=== PATIENT | female | born 1985 | race African-American/Black ===

== ENCOUNTER 2017-04-17 16:45 | Emergency (ER) | payer OTHER ==
[~2017-04-17] VITALS: Ht 162.6 cm; Wt 86.4 kg
[2017-04-17 19:15] LABS: CONTROL LINE HCG INT CTR LINE PRESENT
[2017-04-17 19:19] LABS: BASO % 0.4 % (0.0-1.0); EOS # 0.1 10^3/uL (0.0-0.50); EOS % 1.4 % (0.0-3.0); IMMATURE GRANULOCYTE % 0.5 % (0-0); LYMPH # 1.4 10^3/uL (1.5-4.5); LYMPH % 25.3 % (24.0-44.0); MEAN CORPUSCULAR HEMOGLOBIN 27.7 pg (27.0-33.0); MEAN CORPUSCULAR HGB CONC 32.5 g/dl (32.0-36.5); MEAN CORPUSCULAR VOLUME 85.2 fl (80.0-96.0); MONO # 0.4 10^3/uL (0.0-0.8); MONO % 7.2 % (0.0-5.0); NEUTROPHILS # 3.7 10^3/uL (1.8-7.7); NEUTROPHILS % 65.2 % (36.0-66.0); PLATELET COUNT, AUTOMATED 241 10^3/uL (150-450); WHITE BLOOD COUNT 5.7 10^3/uL (4.0-10.0)
[2017-04-17 19:45] LABS: BACTERIA, URINE LARGE AMOUNT; HYALINE CAST, URINE NONE SEEN /lpf (0-1); MICROSCOPIC EXAM PERFORMED; RBC, URINE TNTC /hpf (0-3); SQUAMOUS EPITHELIAL CELL URINE MOD AMOUNT /hpf (SMALL AMT); WBC, URINE 15-20 /hpf (0-3)
[2017-04-17 19:46] LABS: MICROSCOPIC INDICATED? MAN YES (NO)
[2017-04-17] MEDS ORDERED: DIFL150T PO (19:50)
[2017-04-17] MEDS ORDERED: PYRI1TAB5 PO (19:50)
[2017-04-17] MEDS ORDERED: BACT800T5 PO (19:50)
[2017-04-17 19:53] VITALS: BP 124/74
== END 2017-04-17 19:58 | disposition home or self-care (01) ==
LOC: M ED 16:45
DX: N39.0 Urinary tract infection, site not specified (principal); N92.0 Excessive and frequent menstruation with regular cycle

== ENCOUNTER 2017-06-06 18:58 | Emergency (ER) | payer OTHER ==
[~2017-06-06] VITALS: Ht 162.6 cm; Wt 86.4 kg
[~2017-06-06 18:58] MED LIST: BACT800T5 PO; DIFL150T PO; PYRI1TAB5 PO
[2017-06-06] MEDS ORDERED: NORCO, ANEXSIA 5/325MG TABLET (HYDROcodone/ACETAMINOPHEN) As Ordered ONE (22:12)
[2017-06-06] MEDS ORDERED: LIDOCAINE 1% MDV 20ML VIAL As Ordered ONE (22:12)
[2017-06-06] MEDS ORDERED: LIDOCAINE 1% MDV 20ML VIAL SC ONE (22:15)
[2017-06-06] MEDS ORDERED: NORCO, ANEXSIA 5/325MG TABLET (HYDROcodone/ACETAMINOPHEN) PO ONE (22:15)
[2017-06-06] MEDS ORDERED: predniSONE 20 MG TAB PO ONE (23:30)
[2017-06-07 00:46] VITALS: BP 128/68
[2017-06-07] MEDS ORDERED: BACT800T5 PO (00:47)
[2017-06-07] MEDS ORDERED: BACTRIM 160MG/800MG DS TAB PO ONE (01:00)
== END 2017-06-07 00:50 | disposition home or self-care (01) ==
LOC: M ED 18:58
DX: L02.31 Cutaneous abscess of buttock (principal); F17.210 Nicotine dependence, cigarettes, uncomplicated

== ENCOUNTER 2017-06-08 20:51 | Emergency (ER) | payer OTHER ==
[~2017-06-08] VITALS: Ht 162.6 cm; Wt 86.4 kg
[2017-06-08] MEDS ORDERED: BACTRIM 160MG/800MG DS TAB PO ONE (22:30)
[2017-06-08 22:53] VITALS: BP 122/56
== END 2017-06-08 22:55 | disposition home or self-care (01) ==
LOC: M ED 20:51
DX: L02.31 Cutaneous abscess of buttock (principal); Z72.0 Tobacco use

== ENCOUNTER → 2017-08-28 | Outpatient (REF) | payer OTHER ==
[2017-08-28 13:59] LABS: APPEARANCE, URINE MANUAL CLEAR (CLEAR); BILIRUBIN, URINE MANUAL NEGATIVE (NEGATIVE); BLOOD URINE MANUAL NEGATIVE (NEGATIVE); COLOR, URINE MANUAL COLORLESS (YELLOW); GLUCOSE, URINE (UA) MANUAL NEGATIVE (NEGATIVE); KETONE, URINE MANUAL NEGATIVE (NEGATIVE); LEUKOCYTE ESTERASE, URINE MAN NEGATIVE (NEGATIVE); MICROSCOPIC INDICATED? MAN NO (NO); NITRITE, URINE MANUAL NEGATIVE (NEGATIVE); PROTEIN, URINE MANUAL NEGATIVE (NEGATIVE); SPECIFIC GRAVITY,URINE MANUAL 1.005 (1.002-1.035); UROBILINOGEN, URINE MANUAL NORMAL (NORMAL)
== END ==
LOC: M LAB REF 13:18
DX: M54.5 Low back pain (principal)

== ENCOUNTER → 2017-08-28 | Outpatient (CLI) | payer OTHER | LOC: M RAD 10:40 | DX: M54.5 Low back pain (principal) | CPT/HCPCS: 74176 ==